=== PATIENT | male | born 1945 | race Caucasian/White ===

== ENCOUNTER → 2016-04-11 | Outpatient (CLI) | payer MEDICARE ==
[2014-07-03 10:26] VITALS: BP 122/84
[~2016-04-11] MED LIST: CHOL10003 PO; DOXA4TAB3 PO; FEXO180T81 PO; IBUP100T7 PO; METF10002 PO; OMEG300C PO; SILD50TA PO; TRIA1CAP3 PO; WARF5TAB7 PO; ZOLP10TA4 PO
--- NOTE | 2016-04-11 10:29 | KCIC ---
Examination: Two views of the right knee. HISTORY History of pain in the right knee for 2 months. COMPARISON None available Findings: There is moderate joint space loss identified in the medial, lateral and patellofemoral compartment. Small osteophyte formation identified in the patellofemoral compartment. Small knee joint effusion identified. Osseous demineralization limits evaluation. IMPRESSION Moderate tricompartmental degenerative changes in the right knee. Electronically signed by: Jose Means (Apr 11, 2016 10:28:32)
== END | disposition home or self-care (01) ==
LOC: KCIC 09:47
PROVIDERS: ATTEND Family Medicine
DX: M25.761 Osteophyte, right knee (principal); M25.461 Effusion, right knee
CPT/HCPCS: 73560

== ENCOUNTER → 2017-05-18 | Outpatient (CLI) | payer MEDICARE | END | disposition home or self-care (01) | LOC: KCIC 12:00 | DX: J40 Bronchitis, not specified as acute or chronic (principal); M47.894 Other spondylosis, thoracic region | CPT/HCPCS: 71046 ==